=== PATIENT | female | born 1945 ===

== ENCOUNTER → 2017-06-07 | Day surgery (SDC) | payer OTHER ==
[~2017-06-07] MED LIST: ATENOLOL50 MG PO; FOSAMAX70 MG PO; LIPITOR20 MG PO; OSTERA TABLET1 EACH PO
== END | disposition home or self-care (01) ==
LOC: CIR.AMB 05:20
DX: D05.12 Intraductal carcinoma in situ of left breast (principal); D24.2 Benign neoplasm of left breast

== ENCOUNTER 2020-06-10 11:21 | Outpatient (CLI) | payer OTHER | END 2020-06-10 11:28 | disposition home or self-care (01) | LOC: SONOGRAMA 11:21 | PROVIDERS: ATTEND Surgery | DX: D05.12 Intraductal carcinoma in situ of left breast (principal); N60.11 Diffuse cystic mastopathy of right breast; N60.12 Diffuse cystic mastopathy of left breast; N64.59 Other signs and symptoms in breast ==